=== PATIENT | male | born 1990 | race African-American/Black ===

== ENCOUNTER 2016-05-11 21:53 | Emergency (ER) | payer BC ==
[2016-05-11 22:09] VITALS: TEMP 98.3; BMI 43.0
--- NOTE | 2016-05-11 23:25 | PDOC ---
History of Present Illness - General Chief Complaint: Abscess Boil Stated Complaint: ABSCESS BOIL Time Seen by Provider: 05/11/16 22:52 History Source: Patient - History of Present Illness Timing/Duration: reports: other Past History - Past Medical History Allergies/Adverse Reactions: Allergies Allergy/AdvReac Type Severity Reaction Status Date / Time Sulfa (Sulfonamide Allergy Verified 05/11/16 22:09 Antibiotics) Home Medications: Ambulatory Orders Acetaminophen [Tylenol] 650 mg PO PRN 05/11/16 Clindamycin [Cleocin -] 300 mg PO Q6HPO #28 capsule 05/11/16 Other medical history: denies - Psycho/Social/Smoking Cessation Hx Suicidal Ideation: No Smoking History: Never smoked Review of Systems - Review of Systems Constitutional: No: Chills, Fever Integumentary: Yes: Other (induration w/ drainage) *Physical Exam - Vital Signs Last Vital Signs Temp Pulse Resp BP Pulse Ox 98.3 F 114 H 20 153/95 97 05/11/16 22:06 05/11/16 22:06 05/11/16 22:06 05/11/16 22:06 05/11/16 22:06 - Physical Exam General Appearance: Yes: Appropriately Dressed. No: Apparent Distress HEENT: positive: Normal Voice Neck: positive: Supple Respiratory/Chest: negative: Respiratory Distress Integumentary: positive: Dry, Warm, Other (6x6cm area of induration w/ purulent drainage through small opening, no significant overlying erythema) Neurologic: positive: Fully Oriented, Alert, Normal Mood/Affect Procedures - Incision and Drainage I&D Site: Left: Buttock Anesthesia: 1% Lidocaine Blade Size: 11 Attempts: 1 (w/ copious purulent diacharge, packign placed) Iodinated Packin/4 in Complications: none Dressing: Yes Medical Decision Making - Medical Decision Making 05/11/16 23:23 26 yo M, morbidly obesed, recurrent pilonidal abscesses, here w/ L gluteal abscess x 3 days. +purulent drainage. No f/c see exam Gluteal abscess -tetanus UTD -I&D -abx -wound check in 48 hrs 05/11/16 23:55 05/11/16 23:56 S/p I&D. HR 86 on my reassessment. Stable for dc w/ wound check in 48 hrs *DC/Admit/Observation/Transfer Diagnosis at time of Disposition: Abscess, gluteal, left - Discharge Dispostion Disposition: HOME Condition at time of disposition: Improved - Prescriptions Prescriptions: Clindamycin [Cleocin -] 300 mg PO Q6HPO #28 capsule - Patient Instructions Printed Discharge Instructions: DI for Incision and Drainage of a Skin Abscess Additional Instructions: Take antibiotics and return to ED in 2 days for wound check
[2016-05-11 23:54] VITALS: BP 145/89; PULSE 91
== END 2016-05-11 23:54 | disposition home or self-care (01) ==
LOC: JER 21:53
PROC: 0H98XZZ Drainage of Buttock Skin, External Approach (ICD-10-PCS; principal; 2016-05-11)
DX: L02.31 Cutaneous abscess of buttock (principal); E66.01 Morbid (severe) obesity due to excess calories; Z68.41 Body mass index [BMI] 40.0-44.9, adult
CPT/HCPCS: 99283-25